=== PATIENT | female | born 2000 | race Caucasian/White ===

== ENCOUNTER 2020-09-07 10:08 | Emergency (ER) | payer MEDICAID, SELFPAY ==
[2020-09-07 10:09] VITALS: BP 116/74; PULSE 75; RESP 16; TEMP 37.1; O2SAT 98; BMI 21.0
--- NOTE | 2020-09-07 10:24 | HMH.EDABDPAI ---
ED Disposition Clinical Impression: Dyspareunia Abdominal pain Qualifiers: Abdominal location: lower abdomen, unspecified Qualified Code(s): R10.30 - Lower abdominal pain, unspecified Disposition: Home, Self-Care Condition on Discharge: Good Instructions: DI for Dyspareunia, DI for Abdominal Pain-Adult Additional Instructions: Follow up with your engineer system administrator within the next week for reevaluation. Return to the emergency department if you develop worsening symptoms, fever, other acute new concerns. - Critical Care Critical Care Time: No Attestation: On 09/07/20, the high probability of a clinically significant, sudden or life threatening deterioration of the following system(s) required my full and direct attention, intervention and personal management. The time I documented below is in addition to time spent performing reported procedures but includes the following listed in this critical care notation. Medical Decision Making - Medical Records Medical records reviewed: Yes: I reviewed the patient's medical records. - Danny Inquiry Pt receiving controlled substance: No Vital Signs: 09/07/20 10:09 Temperature 98.8 F Temperature Source Oral Pulse Rate [Radial] 75 Respiratory Rate 16 Blood Pressure [Right Arm] 116/74 Blood Pressure Mean [Right Arm] 88 Blood Pressure Position [Right Arm] Sitting 02 Sat by Pulse Oximetry 98 Oxygen Delivery Method Room Air - Lab Data Lab results reviewed: Yes: I reviewed the patient's lab results. Lab Results 09/07/20 10:20: Urine Color Yellow, Urine Appearance Clear, Urine pH 6.0, Ur Specific [place] >= 1.030, Urine Protein Negative, Urine Glucose (UA) Negative, Urine Ketones 1+, Urine Blood Negative, Urine Nitrate Negative, Urine Bilirubin 1+ A, Urine Urobilinogen 0.2, Ur Leukocyte Esterase Negative 09/07/20 10:20: Urine HCG, Qual Negative Orders (Tests/Meds): ORDERS Category Date Time Status Urinalysis and Microscopic Stat Lab 09/07/20 10:20 Results Medical Decision Narrative: Patient has no abdominal tenderness on exam here. No findings clinically or by history that would suggest appendicitis, diverticulitis, bowel obstruction, perforated viscus, ovarian torsion. She has had some lower abdominal cramping/abdominal pain even before IUD placement, but it seems to have become worse since then. She has been evaluated by gynecology for this and had her IUD strings trimmed because of the dyspareunia, but this has not helped. No abnormal vaginal discharge or adnexal tenderness that would suggest tubo-ovarian abscess or STD. test negative and urinalysis does not suggest UTI. Bladder prolapse is a consideration versus interstitial cystitis or pain related to IUD. With a nontender abdomen and no clinically ill type symptoms I have very low suspicion for uterine perforation. Discharged home to follow-up with engineer system administrator within the next several days. Recommended pelvic rest until gynecology clearance. Abdominal Pain HPI - General Chief Complaint: Abdominal Pain Stated Complaint: pelvic area pain Time Seen by Provider: 09/07/20 10:24 Mode of Arrival: Ambulatory Limitations: No Limitations Description of Symptoms (Recalled from ER Triage Doc. by RN): to ed per pvt car with c/o abd pain x 2 days pt c/o nausea, vomiting after eating denies diarrhea, fever, chills. - History of Present Illness HPI narrative: 20-year-old female who presents to the emergency department for evaluation of approximately 6 months of suprapubic lower abdominal pain that has been intermittent, worse with intercourse. She has seen her engineer system administrator for this several times and had her IUD strings shortened 2-3 times as this was thought to be part of the problem. Pt thinks she might have endometriosis, because she has had some symptoms similar to this even before her IUD placement. No abnormal vaginal bleeding. She denies any abnormal vaginal discharge. She does feel pressure
[2020-09-07 10:27] LABS: Microscopic, Urine URINE MICROSCOPIC (MICROSCOPIC)
[2020-09-07 10:31] LABS: Appearance,Urine CLEAR (Clear); Blood, Urine Negative (Negative); Color,Urine YELLOW (Yellow); Glucose,Urine (UA) Negative (Negative); Ketones,Urine 1+ (Negative); Leukocyte Esterase,Urine Negative (Negative); Nitrate,Urine Negative (Negative); Protein,Urine Negative (Negative); Specific Gravity, Urine >= 1.030 (1.005-1.030); Urobilinogen,Urine 0.2 EU/dl (0.2)
[2020-09-07 10:34] LABS: Urine Pregnancy, HCG Qual. Negative (Negative)
[2020-09-07 10:40] LABS: Bilirubin,Urine 1+ (Negative)
[2020-09-07 10:50] LABS: Mucus,Urine 1+ /lpf
[2020-09-07 10:51] VITALS: BP 110/62; PULSE 72; RESP 16; TEMP 37; O2SAT 98
== END 2020-09-07 10:52 | disposition home or self-care (01) ==
PROVIDERS: Emergency Provider Emergency Medicine; PCP Physician Assistant Medical
DX: N94.10 Unspecified dyspareunia (principal); R10.30 Lower abdominal pain, unspecified
CPT/HCPCS: 81001; 81025; 99282

== ENCOUNTER 2021-01-06 11:10 | Emergency (ER) | payer MEDICAID, SELFPAY ==
[2021-01-06 11:10] VITALS: BP 107/73; PULSE 71; RESP 19; TEMP 36.9; O2SAT 99; BMI 17.4
--- NOTE | 2021-01-06 11:33 | HMH.EDUTC ---
[facility] [place] Clinical Impression: Vagina itching UTI (urinary tract infection) Qualifiers: Urinary tract infection type: acute cystitis Hematuria presence: without hematuria Qualified Code(s): N30.00 - Acute cystitis without hematuria Disposition: Home, Self-Care Condition on Discharge: Good Instructions: Urinary Tract Infection, DI for Urinary Tract Infection (UTI) Additional Instructions: Increase fluids, water and not soda or tea. Can drink cranberry juice or cranberry extract. White front to back Wear cotton underwear Empty bladder after intercourse Start antibiotics immediately and make sure you take the full course although you may start to see improvement over the next 48 hours. You can eat yogurt or take probiotics to decrease diarrhea or yeast infection caused by the antibiotic Be sure to follow-up anytime for new or worsening symptoms in 48 hours for wound urine culture results be sure to let you PCP no recent urine for culture so they can request records and ensure that you have appropriate antibiotic if you are not getting better or getting worse. If symptoms worsen or do not improve return or be seen in the ER. Follow-up with primary care this week. Prescriptions: cephALEXin [Cephalexin 500mg Tab] 500 mg PO BID 7 Days #14 tab Prescription Printed Referrals: Rosemary Babin PA [Primary Care Provider] - Time of Disposition: 11:54 Medical Decision Making - Danny Inquiry Pt receiving controlled substance: No Vital Signs: 01/06/21 11:10 Temperature 98.4 F Temperature Source Oral Pulse Rate [Right Brachial] 71 Respiratory Rate 19 Blood Pressure [Right Arm] 107/73 L Blood Pressure Mean [Right Arm] 84 Blood Pressure Source [Right Arm] Automatic Cuff Blood Pressure Position [Right Arm] Sitting 02 Sat by Pulse Oximetry 99 Oxygen Delivery Method Room Air Orders (Tests/Meds): ORDERS Category Date Time Status Urine Culture Stat Micro 01/06/21 11:45 [place] [facility] [place] - General Chief complaint: [facility] Stated complaint: vaginal issues Time Seen by Provider: 01/06/21 11:37 Mode of Arrival: Ambulatory Source of Information: Patient Limitations: No Limitations Description of Symptoms (Recalled from Triage Doc. by RN): PATIENT C/O LOWER BACK PAIN, ITCHING AND ODOR TO VAGINAL AREA X 2 DAYS HEENT Symptoms (Recalled from RN notes): No Resp Symptoms (Recalled from RN notes): No Skin Symptoms (Recalled from RN notes): No MS Symptoms (Recalled from RN notes): No Functional Status (Recalled from RN notes): WNL - History of Present Illness Provider Complaint: 20 yr old female presents for vaginal odor,burning with voiding,pressure in pelvis and redness to vagina. pt states she is for 3 yrs no known issues but would like to be tested. - Related Data Home Medications Medication Instructions Recorded Confirmed Famotidine [Pepcid 20mg Tablet] 20 mg PO DAILY 03/05/19 03/05/19 Previous Rx's Medication Instructions Recorded cephALEXin [Cephalexin 500mg Tab] 500 mg PO BID 7 Days #14 tab 01/06/21 Allergies Allergy/AdvReac Type Severity Reaction Status Date / Time adhesive tape Allergy Verified 03/05/19 12:43 cyclobenzaprine Allergy Verified 03/05/19 12:43 [From Flexeril] diphenhydramine Allergy Verified 03/05/19 12:42 [From Benadryl] - Worker's Comp Is this a Worker's Comp case?: No [facility] History - Hepatitis A Screen Drug use history?: No High risk sexual behaviors?: No History of sexually transmitted infection?: No Currently employed?: No Childcare worker?: No Do you have indoor plumbing?: Yes Do you have electricity?: Yes Attestation statement:: This patient has been screened for Hepatitis A risk factors. I have reviewed the patient's past medical history: Yes - Social History Alcohol Intake: never Occupational Status: other ROS Obtained: Yes Systems reviewed as appropriate & no additional complaints - Consti
[2021-01-06 11:55] VITALS: BP 107/73; PULSE 71; RESP 19; TEMP 36.9; O2SAT 99
[2021-01-06 18:44] LABS: UTC Pregnancy Test, Urine Negative (Negative)
[2021-01-08 18:20] LABS: Neisseria gonorrhoeae, NAA Negative (Negative)
== END 2021-01-06 12:01 | disposition home or self-care (01) ==
PROVIDERS: Emergency Provider Nurse Practitioner Family; PCP Physician Assistant Medical
DX: N30.00 Acute cystitis without hematuria (principal)
CPT/HCPCS: 81025; 87086; 87210; 87491; 87591; 99203; G0463

== ENCOUNTER 2021-06-26 08:27 | Emergency (ER) | payer MEDICAID, SELFPAY ==
[2021-06-26 08:28] VITALS: BP 116/79; PULSE 85; RESP 16; TEMP 36.8; O2SAT 97; BMI 17.6
--- NOTE | 2021-06-26 08:33 | PC.NURSE ---
patient to restroom with assist from tech
[2021-06-26 08:44] LABS: Microscopic, Urine URINE MICROSCOPIC (MICROSCOPIC)
[2021-06-26 08:46] LABS: Appearance,Urine CLEAR (Clear); Bilirubin,Urine Negative (Negative); Blood, Urine Negative (Negative); Color,Urine YELLOW (Yellow); Glucose,Urine (UA) Negative (Negative); Ketones,Urine Negative (Negative); Leukocyte Esterase,Urine Negative (Negative); Nitrate,Urine Negative (Negative); Protein,Urine Negative (Negative); Specific Gravity, Urine 1.025 (1.005-1.030); Urobilinogen,Urine 0.2 EU/dl (0.2)
--- NOTE | 2021-06-26 08:48 | PC.NURSE ---
ED MD at
--- NOTE | 2021-06-26 08:48 | HMH.EDGENADL ---
ED Disposition Clinical Impression: Ruptured ovarian cyst Disposition: Home, Self-Care Condition on Discharge: Good Additional Instructions: Ibuprofen 400 mg every 6 hours as needed for pain. Heating pad as needed. Follow-up with your primary care provider or ALLEY WORKER if not improved in 2 to 3 days. Additional instructions for ABDOMINAL PAIN: Return immediately if worsening abdominal pain, vomiting, shortness of breath, fever, vomiting of blood or abdominal distention. Referrals: Rosemary Babin PA [Primary Care Provider] - - Critical Care Critical Care Time: No Attestation: On 06/26/21, the high probability of a clinically significant, sudden or life threatening deterioration of the following system(s) required my full and direct attention, intervention and personal management. The time I documented below is in addition to time spent performing reported procedures but includes the following listed in this critical care notation. Medical Decision Making - Danny Inquiry Pt receiving controlled substance: No Vital Signs: 06/26/21 08:28 06/26/21 09:23 06/26/21 09:54 Temperature 98.2 F Temperature Source Oral Pulse Rate 65 62 Pulse Rate [Right Radial] 85 Respiratory Rate 16 Blood Pressure 110/65 102/62 L Blood Pressure [Right Arm] 116/79 Blood Pressure Mean [Right Arm] 91 02 Sat by Pulse Oximetry 97 96 97 Oxygen Delivery Method Room Air Room Air - Lab Data Lab Results 06/26/21 08:31: Urine Color Yellow, Urine Appearance Clear, Urine pH 5.0, Ur Specific [place] 1.025, Urine Protein Negative, Urine Glucose (UA) Negative, Urine Ketones Negative, Urine Blood Negative, Urine Nitrate Negative, Urine Bilirubin Negative, Urine Urobilinogen 0.2, Ur Leukocyte Esterase Negative, Urine RBC None, Urine WBC 3-5, Ur Squamous Epith Cells Occasional, Urine Bacteria None 06/26/21 08:31: Urine HCG, Qual Negative 06/26/21 08:45: WBC 7.2, RBC 4.79, Hgb 15.1, Hct 45.0, MCV 94.0, MCH 31.6 H, MCHC 33.6, RDW 13.2, Plt Count 238, MPV 8.4, Neut % (Auto) 48.3, Lymph % (Auto) 40.4, [place] % (Auto) 5.0, Eos % (Auto) 4.9, Baso % (Auto) 1.4, Neut # (Auto) 3.5, Lymph # (Auto) 2.9, [place] # (Auto) 0.4, Eos # (Auto) 0.4, Baso # (Auto) 0.1 06/26/21 08:45: Sodium 140, Potassium 4.2, Chloride 109 H, Carbon Dioxide 23, Anion Gap 12.2, BUN 12, Creatinine 0.70, Estimated Creat Clear 91, Estimated GFR 106, Est GFR ( Amer) 128, Glucose 87, Calcium 8.9, Total Bilirubin 0.3, AST 23, ALT 16, Alkaline Phosphatase 54, Total Protein 7.3, Albumin 4.6, Globulin 2.7, Albumin/Globulin Ratio 1.7, Lipase 62 Result diagrams: 06/26/21 08:45 06/26/21 08:45 Orders (Tests/Meds): ED MEDICATIONS Discontinued Medications Generic Name Dose Route Start Last Admin Trade Name Freq PRN Reason Stop Dose Admin Ketorolac Tromethamine 30 mg 06/26/21 08:55 06/26/21 09:11 Ketorolac 30mg/Ml Vial IV 06/26/21 08:56 30 mg ONCE ONE Administration Ondansetron HCl 4 mg 06/26/21 08:55 06/26/21 09:11 Ondansetron 4mg/2ml Vial IV 06/26/21 08:56 4 mg ONCE ONE Administration - CT Data CT Scan: Abdomen, Pelvis Time Received: 10:[address] Reviewed: Yes: I have viewed the radiologist's interpretation Findings Narrative: Procedure(s): CT abdomen pelvis wo con Accession Number(s): [id number] cc: Jose Vences MD; Rosemary Babin; Abdelrahman De Luna MD~ FINAL REPORT CLINICAL HISTORY: abdo and R flank pain, nausea FINDINGS: Axial CT images of the abdomen and pelvis were obtained without intravenous contrast. Coronal reformatted images were also obtained.This study was performed with techniques to keep radiation doses as low as reasonably achievable (ALARA). Individualized dose reduction techniques using automated exposure control or adjustment of mA and/or kV according to the patient's size were employed. Abdomen: The lung bases are clear. There is no evidence of renal stone or hydronephrosis. The gal
[2021-06-26 08:50] LABS: Urine Pregnancy, HCG Qual. Negative (Negative)
--- NOTE | 2021-06-26 08:53 | CT_ITS ---
FINAL REPORT CLINICAL HISTORY: abdo and R flank pain, nausea FINDINGS: Axial CT images of the abdomen and pelvis were obtained without intravenous contrast. Coronal reformatted images were also obtained.This study was performed with techniques to keep radiation doses as low as reasonably achievable (ALARA). Individualized dose reduction techniques using automated exposure control or adjustment of mA and/or kV according to the patient's size were employed. Abdomen: The lung bases are clear. There is no evidence of renal stone or hydronephrosis. The gallbladder is present. The liver, spleen and pancreas have an unremarkable, unenhanced appearance. No mass or adenopathy is seen. No inflammatory process is identified. Pelvis: Images of the pelvis reveal no evidence of ureteral dilation or ureteral stone. There is a small amount of free fluid which could be physiologic or reactive. There are probable small bilateral ovarian cysts. The appendix is partially visualized and normal were seen. An IUD is present in the uterus. IMPRESSION: No renal or ureteral stone, or hydronephrosis. Partially visualized appendix appears normal. Small amount of pelvic free fluid could be physiologic or reactive. Probable small bilateral ovarian cysts. Reviewed, Interpreted and Dictated by Jose Vences III, MD Transcribed by Vasyl Lima Authenticated by Jose Vences III, MD on 06/26/2021 10:38:02 AM [facility][1]
[2021-06-26 08:57] LABS: Squamous Epithelial Cell,Urine Occasional #/hpf (0-5)
[2021-06-26 09:00] LABS: Basophils # 0.1 K/mm3 (0-0.2); Basophils % 1.4 % (0.1-2.0); Eosinophils # 0.4 K/mm3 (0.0-0.4); Eosinophils % 4.9 % (0.1-12.0); Hemoglobin 15.1 g/dL (12.2-16.2); Lymphocytes # 2.9 K/mm3 (0.7-4.5); Lymphocytes % 40.4 % (10-50); Mean Corpuscular HGB Conc 33.6 g/dL (31.8-35.4); Mean Corpuscular Hemoglobin 31.6 pg (27.0-31.2); Mean Platelet Volume 8.4 fl (7.4-10.4); Monocytes # 0.4 K/mm3 (0.1-1.0); Neutrophils # 3.5 K/mm3 (1.8-7.8); Neutrophils % 48.3 % (37.0-80.0); Platelet Count 238 K/mm3 (142-424); Red Blood Count 4.79 M/mm3 (4.20-5.40); Red Cell Distribution Width 13.2 % (11.5-17.5); White Blood Count 7.2 K/mm3 (4.8-10.8)
[2021-06-26 09:05] LABS: Alanine Aminotransferase 16 U/L (12-78); Albumin Level 4.6 g/dl (3.5-5.0); Albumin/Globulin Ratio 1.7 (1.1-1.8); Alkaline Phosphatase 54 U/L (38-126); Anion Gap 12.2 mEq/L (5-15); Aspartate Amino Transferase 23 U/L (14-36); Bilirubin,Total 0.3 mg/dl (0.2-1.3); Blood Urea Nitrogen 12 mg/dl (7-17); Calcium 8.9 mg/dl (8.4-10.2); Carbon Dioxide 23 mmol/L (22.0-30.0); Chloride 109 mmol/L (98-107); Creatinine Clearance Estimated 91 mL/min (50-200); Estimated Glomerular Filt Rate 106 ml/min (>60); GFR (African American) 128 ML/MIN (>60); Globulin 2.7 g/dL (1.3-3.2); Glucose 87 mg/dl (74-100); Lipase 62 U/L (23-300); Potassium 4.2 mmoL/L (3.5-5.1); Sodium 140 mmol/L (136-145); Total Protein,Serum 7.3 g/dl (6.3-8.2)
--- NOTE | 2021-06-26 09:22 | PC.NURSE ---
Called radiology and notified them of CT order
[2021-06-26 09:23] VITALS: BP 110/65; PULSE 65; O2SAT 96
--- NOTE | 2021-06-26 09:35 | PC.NURSE ---
pt to CT via wheelchair
--- NOTE | 2021-06-26 09:40 | PC.NURSE ---
patient returned from CT with radio electrician by wheelchair
[2021-06-26 09:54] VITALS: BP 102/62; PULSE 62; O2SAT 97
--- NOTE | 2021-06-26 09:55 | PC.NURSE ---
patient ambulatory to restroom without complications
--- NOTE | 2021-06-26 10:02 | PC.NURSE ---
patient ambulatory back to room from restroom
--- NOTE | 2021-06-26 10:33 | PC.NURSE ---
patient ambulatory to restroom without complications
--- NOTE | 2021-06-26 10:52 | PC.NURSE ---
patient ambulatory back to ED room from restroom without complications
[2021-06-26 11:20] VITALS: BP 115/69; PULSE 63; RESP 16; TEMP 36.8; O2SAT 98
== END 2021-06-26 11:23 | disposition home or self-care (01) ==
PROVIDERS: Emergency Provider Emergency Medicine; PCP Physician Assistant Medical
DX: N83.201 Unspecified ovarian cyst, right side (principal)
CPT/HCPCS: 74176; 80053; 81001; 81025; 83690; 85025; 96374; 96375; 99284; J2405